=== PATIENT | male | born 1945 | race Caucasian/White ===

== ENCOUNTER 2019-12-29 08:52 | Inpatient (IN) ==
[2019-12-24 15:52] LABS: Basophils # 0.1 10*3/uL (0.0-0.2); Basophils % 0.6 % (0.0-0.8); Eosinophils # 0.2 10*3/uL (0.0-0.87); Eosinophils % 2.3 % (0.00-10.9); Hematocrit 39.9 VOL% (42.0-52.0); Hemoglobin 13.6 GM/DL (14.0-18.0); Immature Granulocytes % 0.5 %; Immature Granulocytes Absolute 0.04 #; Lymphocytes # 2.2 10*3/uL (1.4-4.0); Lymphocytes % 26.6 % (21.2-54.2); Mean Corpuscular HGB Conc 34.1 GM/DL (32-36); Mean Platelet Volume 9.5 FL (9.6-12.0); Monocytes % 6.4 % (1.7-12.7); Neutrophils % 63.6 % (38.7-73.9); Platelet Count 168 T/CUMM (130-400); Red Blood Count 4.03 MC/CUMM (3.8-5.5); Red Cell Distribution Width 12.8 % (9.3-17.3); White Blood Count 8.3 T/CUMM (4-12)
[2019-12-24 16:16] LABS: Calcium 9.8 MG/DL (8.5-10.1); Osmolality,Calculated 304.3 MOS/KG (273-304)
[~2019-12-29 08:52] MED LIST: ceFAZolin 2,000 MG in PREMIX 1 EACH IV ONE
[2019-12-29] MEDS ORDERED: LACTATED RINGERS 1,000 ML IV SCH (09:30)
[2019-12-29 09:36] LABS: Calcium 8.6 MG/DL (8.5-10.1); Osmolality,Calculated 296.4 MOS/KG (273-304)
[2019-12-29] MEDS ORDERED: BACITRACIN OINT 0.9 GM PACK TOP ONE (12:42)
[2019-12-29] MEDS ORDERED: MORPHINE 4 MG/1 ML VIAL IV PRN ×2 (13:12)
[2019-12-29] MEDS ORDERED: MAGNESIUM HYDROXIDE SUSP 30 ML UDCUP PO PRN (13:12)
[2019-12-29] MEDS ORDERED: ONDANSETRON 4 MG/2 ML VIAL IV PRN (13:12)
[2019-12-29] MEDS ORDERED: DEXTROSE 50% 25 GM/50 ML VIAL IV PRN (13:21)
[2019-12-29] MEDS ORDERED: GLUCAGON 1 MG VIAL IM PRN (13:21)
[2019-12-29] MEDS ORDERED: propofoL 200 MG/20 ML VIAL IV ONE (13:22)
[2019-12-29] MEDS ORDERED: SEVOFLURANE 1 UNIT/15 MINUTE INH ONE (13:22)
[2019-12-29] MEDS ORDERED: LIDOCAINE 2% 5 ML VIAL ONE (13:22)
[2019-12-29] MEDS ORDERED: ATROPINE 0.4 MG/1 ML VIAL ONE (13:23)
[2019-12-29] MEDS ORDERED: ePHEDrine 50 MG/ML VIAL ONE (13:23)
[2019-12-29] MEDS ORDERED: PHENYLEPHRINE 1 MG/10 ML SYRINGE IV ONE (13:23)
[2019-12-29] MEDS ORDERED: fentaNYL 100 MCG/2 ML VIAL ONE (13:23)
[2019-12-29] MEDS ORDERED: GLYCOPYRROLATE 0.4 MG/2 ML VIAL ONE (13:23)
[2019-12-29] MEDS ORDERED: INFLUENZA VIRUS VACCINE 0.5 ML SYRINGE IM ONE (14:39)
[2019-12-29] MEDS ORDERED: hydrALAZINE 20 MG/1 ML VIAL IV PRN (15:52)
[2019-12-29] MEDS: amLODIPine 5 MG TABLET PO SCH (16:02)
[2019-12-29] MEDS: LACTATED RINGERS 1,000 ML IV SCH (16:04)
[2019-12-29] MEDS: INSULIN LISPRO 100 UNIT/ML SUBCUT SCH ×2 (16:14→20:45)
[2019-12-29] MEDS: allopurinoL 100 MG TABLET PO SCH (20:26)
[2019-12-29] MEDS: GABAPENTIN 300 MG CAPSULE PO SCH (20:27)
[2019-12-29] MEDS: APIXABAN 2.5 MG TABLET PO SCH (20:27)
[2019-12-29] MEDS: ceFAZolin 2,000 MG in PREMIX 1 EACH IV SCH (20:27)
[2019-12-29] MEDS: glyBURIDE 5 MG TABLET PO SCH (20:44)
[2019-12-29] MEDS ORDERED: METOPROLOL TARTRATE 50 MG TABLET PO SCH (21:00)
[2019-12-29] MEDS: MEROPENEM 500 MG in SODIUM CHLORIDE 0.9% 100 ML IV SCH (22:55)
[2019-12-30] MEDS: ceFAZolin 2,000 MG in PREMIX 1 EACH IV SCH (03:53)
[2019-12-30] MEDS: MEROPENEM 500 MG in SODIUM CHLORIDE 0.9% 100 ML IV SCH ×2 (05:24→12:17)
[2019-12-30 05:32] LABS: Basophils % 0.3 % (0.0-0.8); Eosinophils # 0.1 10*3/uL (0.0-0.87); Eosinophils % 1.1 % (0.00-10.9); Hematocrit 37.8 VOL% (42.0-52.0); Hemoglobin 12.9 GM/DL (14.0-18.0); Immature Granulocytes % 0.4 %; Immature Granulocytes Absolute 0.04 #; Lymphocytes # 1.2 10*3/uL (1.4-4.0); Lymphocytes % 13.2 % (21.2-54.2); Mean Corpuscular HGB Conc 34.1 GM/DL (32-36); Mean Corpuscular Volume 98.4 FL (87-102); Mean Platelet Volume 9.9 FL (9.6-12.0); Monocytes % 4.7 % (1.7-12.7); Neutrophils % 80.3 % (38.7-73.9); Platelet Count 176 T/CUMM (130-400); Red Blood Count 3.84 MC/CUMM (3.8-5.5); Red Cell Distribution Width 12.9 % (9.3-17.3); White Blood Count 9.1 T/CUMM (4-12)
[2019-12-30 06:00] LABS: Calcium 8.3 MG/DL (8.5-10.1); Osmolality,Calculated 289.7 MOS/KG (273-304)
[2019-12-30] MEDS ORDERED: AMITRIPTYLINE 25 MG TABLET PO SCH ×2 (09:00→21:00)
[2019-12-30] MEDS ORDERED: ATORVASTATIN 40 MG TABLET PO SCH (09:00)
[2019-12-30] MEDS ORDERED: TRIAMTERENE/HCTZ 75-50 MG TABLET PO SCH (09:00)
[2019-12-30] MEDS ORDERED: EZETIMIBE 10 MG TABLET PO SCH (09:00)
[2019-12-30] MEDS: amLODIPine 5 MG TABLET PO SCH (09:07)
[2019-12-30] MEDS: GABAPENTIN 300 MG CAPSULE PO SCH (09:07)
[2019-12-30] MEDS: glyBURIDE 5 MG TABLET PO SCH (09:07)
[2019-12-30] MEDS: allopurinoL 100 MG TABLET PO SCH (09:07)
[2019-12-30] MEDS: APIXABAN 2.5 MG TABLET PO SCH (09:08)
[2019-12-30] MEDS: INSULIN LISPRO 100 UNIT/ML SUBCUT SCH ×2 (09:09→13:14)
[2019-12-30] MEDS: LACTATED RINGERS 1,000 ML IV SCH ×2 (09:09→10:00)
[2019-12-30 16:53] VITALS: BP 120/77
[2019-12-31] MEDS ORDERED: amLODIPine 10 MG TABLET PO SCH (09:00)
== END 2019-12-30 17:07 | disposition home health service (06) | DRG 494 ==
LOC: N.OR 08:52 → N.SDSINP 08:54 → N.TELEN 14:17
PROVIDERS: ADMIT Orthopaedic Surgery; ATTEND Orthopaedic Surgery